=== PATIENT | female | born 1965 | race Caucasian/White ===

== ENCOUNTER → 2017-01-14 | Day surgery (SDC) | payer BC ==
[~2017-01-14] MED LIST: ESCITALOPRAM OX10 MG PO; METFORMIN HCL1000 M1 PO; TRULICITY0.75 MG/0. SUBQ
--- NOTE | ~2017-01-14 | OR ---
Unit #: [id number] #: [id number] Patient: NOLBERTO STEVENS [id number] [address] [place], [place] [address] [id number] O MR#: [id number] NAME: NOLBERTO STEVENS ROOM: Date of Procedure: 01/14/2017 Admission Date: 01/14/2017 Surgeon: Rubén Villalobos III, M.D. : 1965 Attending Physician: Rubén Villalobos III, M.D. Primary Care Physician: Brody Chiu M.D. OPERATIVE REPORT PREOPERATIVE DIAGNOSIS Screening colonoscopy. POSTOPERATIVE DIAGNOSIS Two rectal polyps at around 15 cm. PROCEDURE PERFORMED Colonoscopy to cecum with snare polypectomy x2. ANESTHESIA MAC. SPECIMENS To Pathology. COMPLICATIONS None apparent. INDICATIONS FOR PROCEDURE This is a 51-year-old lady, who is referred for screening colonoscopy. She has no family history of colon cancer and has not seen any bright red blood per rectum or change in bowel habits. DESCRIPTION OF PROCEDURE After consent was obtained, the patient was brought to the endoscopy suite and placed in the left lateral decubitus position. We titrated the above sedation and I performed a rectal exam and did not feel any masses. The scope was placed within the rectal vault. Air was insufflated. I navigated the scope all the way to the cecum without any difficulty. She had normal mucosa. She had a few scattered diverticula but nothing significant. She also had two benign-appearing rectal polyps around 15 cm. They were adjacent enough to each other that I sent them in the same specimen container. They were both snared, cauterized, captured, and sent to Pathology. I did not see any other masses. The scope was retroflexed within the rectum. No other masses were seen. The scope was then carefully withdrawn. The patient tolerated the procedure without any problems. I will have her call my office in a couple of days for biopsy results. Dictated by... Rubén Villalobos III, M.D. Unit #: [id number] #: [id number] Patient: NOLBERTO STEVENS VCL/modl TD: 01/14/2017 11:45 JOB #: [id number] OPERATIVE REPORT Page 1 of 1 X Rubén Villalobos III, MD PROCEDURE OPERATIVE NOTE
== END | disposition home or self-care (01) ==
LOC: COPS 11-19 07:00
DX: Z12.11 Encounter for screening for malignant neoplasm of colon (principal); D12.8 Benign neoplasm of rectum; K57.30 Diverticulosis of large intestine without perforation or abscess without bleeding
CPT/HCPCS: 82947; 84703; 88305; J2250